=== PATIENT | female | born 1975 | race Caucasian/White ===

== ENCOUNTER → 2019-05-23 | Outpatient (CLI) | payer OTHER ==
--- NOTE | 2019-05-24 11:56 | MM ---
Reason for exam: screening (asymptomatic). Last mammogram was performed 14 years and 8 months ago. History: Patient is nulliparous. Took hormonal contraceptives for 3 years. Physical Findings: A clinical breast exam by your physician is recommended on an annual basis and results should be correlated with mammographic findings. MG Screening Mammo w CAD Bilateral CC and MLO view(s) were taken. No prior studies available for comparison. The breast tissue is heterogeneously dense. This may lower the sensitivity of mammography. Nodularity bilaterally varying size and shape. ASSESSMENT: Incomplete: need additional imaging evaluation, BI-RAD 0 RECOMMENDATION: Ultrasound of both breasts. [facility] will attempt to contact patient to return for ultrasound.
== END | disposition home or self-care (01) ==
LOC: RADMAMWWP 08:06
PROVIDERS: ATTEND Obstetrics & Gynecology
DX: Z12.31 Encounter for screening mammogram for malignant neoplasm of breast (principal)
CPT/HCPCS: 77067

== ENCOUNTER → 2019-06-20 | Outpatient (CLI) | payer OTHER ==
--- NOTE | 2019-06-20 11:57 | USB ---
Reason for exam: additional evaluation requested from abnormal screening. History: Patient is nulliparous. Took hormonal contraceptives for 3 years. Physical Findings: Nurse did not find any significant physical abnormalities on exam. US Breast Workup SUKHWINDER Technologist: Roz Palacios Right complete breast ultrasound includes all four quadrants, the retroareolar region and axilla. Finding demonstrates a 0.6 x 0.6 x 0.4cm cystic lesion at 2 o'clock, a 1.0 x 0.9 x 0.4cm cystic cluster at 8 o'clock, 0.5 x 0.3 x 0.2cm lesion at 9 o'clock, ducts at posterior nipple and a 0.7 x 0.6 x 0.5cm cystic lesion at 11 o'clock. Left complete breast ultrasound includes all four quadrants, the retroareolar region and axilla. Finding demonstrates a 0.6 x 0.5 x 0.3cm cystic lesion at 12 o'clock, a ducts at the posterior nipple, a 1.1 x 1.2 x 0.6cm cystic lesion at 2 o'clock and a 0.9 x 0.7 x 0.6cm cystic cluster at 2 o'clock. Numerous benign cysts. These results were verbally communicated with the patient and result sheet given to the patient on 06/20/19. ASSESSMENT: Benign, BI-RAD 2 RECOMMENDATION: Return to routine screening mammogram schedule for both breasts.
== END | disposition home or self-care (01) ==
LOC: RADUSWWP 09:40
PROVIDERS: ATTEND Obstetrics & Gynecology
DX: R92.8 Other abnormal and inconclusive findings on diagnostic imaging of breast (principal)

== ENCOUNTER → 2020-05-17 | Outpatient (CLI) | payer OTHER ==
--- NOTE | 2020-05-17 17:00 | US ---
EXAMINATION TYPE: Transabdominal DATE OF EXAM: 05/17/2020 4:45 PM COMPARISON: NONE CLINICAL HISTORY: Z36 CONFIRM DATES. EXAM PERFORMED: Transvaginal (TV) and Transabdominal (TA) EXAM MEASUREMENTS: GESTATIONAL AGE / DATING Physician Established: Not yet established Dates by First Scan: No previous this is first scan Dates by Current Scan for: too early to date MATERNAL ANATOMY Uterus: 9.1 x 5.8 x 7.5cm Right Ovary: obscured by overlying bowel gas Left Ovary: wnl Post CDS / Adnexa: wnl Presence of free fluid: no Presence of subchorionic bleed measuring 1.5 x 0.3 x 0.9cm GESTATION / SURVEY CRL: 2mm (too early to register) MSD: 1.3 (5 weeks/4 days) Yolk Sac (normal less than 6mm): 3mm Heart Rate: too early to measure IUP Date of LMP: 03/07/20, spotting 10-2-20 Beta HcG (if available): not available IMPRESSION: Subchorionic hemorrhage is suspected. pole is not identified. Findings may represent an early p regnancy. Consider follow-up.
== END | disposition home or self-care (01) ==
LOC: RADUSWWP 16:06
PROVIDERS: ATTEND Obstetrics & Gynecology
DX: Z36.9 Encounter for antenatal screening, unspecified (principal); O26.899 Other specified pregnancy related conditions, unspecified trimester
CPT/HCPCS: 76801; 76817

== ENCOUNTER → 2020-05-17 | Outpatient (CLI) | payer OTHER | END | disposition home or self-care (01) | LOC: LABWHC1 12:17 | PROVIDERS: ATTEND Obstetrics & Gynecology | DX: Z34.81 Encounter for supervision of other normal pregnancy, first trimester (principal) | CPT/HCPCS: 36415; 84702 ==

== ENCOUNTER → 2020-06-05 | Outpatient (CLI) | payer OTHER ==
[2020-06-05 14:34] LABS: Basophils % (A) 0 %; Eosinophils # (A) 0.1 k/uL (0-0.7); Eosinophils % (A) 1 %; HCT 38.4 % (34.0-46.0); HGB 12.6 gm/dL (11.4-16.0); Lymphocytes # (A) 1.8 k/uL (1.0-4.8); Lymphocytes % (A) 20 %; MCH 31.8 pg (25.0-35.0); MCHC 32.8 g/dL (31.0-37.0); MCV 96.7 fL (80.0-100.0); Mean Platelet Volume 9.3; Monocytes # (A) 0.4 k/uL (0-1.0); Monocytes % (A) 4 %; Neutrophils # (A) 6.6 k/uL (1.3-7.7); Neutrophils % (A) 73 %; Platelet Count 212 k/uL (150-450); RBC 3.97 m/uL (3.80-5.40); RDW 14.7 % (11.5-15.5); WBC 9.1 k/uL (3.8-10.6)
== END | disposition home or self-care (01) ==
LOC: LABPAT 13:05
PROVIDERS: ATTEND Obstetrics & Gynecology
DX: Z01.818 Encounter for other preprocedural examination (principal)
CPT/HCPCS: 36415; 85025

== ENCOUNTER 2020-06-06 05:45 | Day surgery (SDC) | payer OTHER ==
[2020-06-05 13:26] VITALS: BMI 22.8
--- NOTE | 2020-06-05 14:20 | P.HPOB ---
History of Present Illness H&P Date: 06/05/20 Chief Complaint: incomplete 44 year old presents for suction D&C. SHe had an US yesterday showing a nonviable of 7 weeks. Review of Systems All systems: negative Constitutional: Denies chills, Denies fever Eyes: denies blurred vision, denies pain Ears, nose, mouth and throat: Denies headache, Denies sore throat Cardiovascular: Denies chest pain, Denies shortness of breath Respiratory: Denies cough Gastrointestinal: Denies abdominal pain, Denies diarrhea, Denies nausea, Denies vomiting Genitourinary: Denies dysuria, Denies hematuria Musculoskeletal: Denies myalgias Integumentary: Denies pruritus, Denies rash Neurological: Denies numbness, Denies weakness Psychiatric: Denies anxiety, Denies depression Endocrine: Denies fatigue, Denies weight change Past Medical History Past Medical History: No Reported History Additional Past Medical History / Comment(s): MISSED AB Hx Obstetric history: She had 3 miscarriages. Her fourth she had a normal vaginal delivery 8#13oz. This is her fifth and she has had care with me since 11 weeks. Quad negative, normal anatomy US and she declined amnio. A+, abs neg, Rub Imm, RPR NR, Hep B neg, HIV NR. normal 1hr GTT. GBS neg. History of Any Multi-Drug Resistant Organisms: None Reported Additional Past Surgical History / Comment(s): Lasik eye surgery. D&Cs Past Anesthesia/Blood Transfusion Reactions: Motion Sickness, Postoperative Nausea & Vomiting (PONV) Smoking Status: Former smoker - Past Family History Father Family Medical History: Coronary Artery Disease (CAD) Mother Family Medical History: Hypertension Medications and Allergies Home Medications Medication Instructions Recorded Confirmed Type No Known Home Medications 06/05/20 06/05/20 History Allergies Allergy/AdvReac Type Severity Reaction Status Date / Time No Known Allergies Allergy Verified 06/05/20 13:21 Exam Osteopathic Statement: *. No significant issues noted on an osteopathic structural exam other than those noted in the History and Physical/Consult. Intake and Output 06/04/20 06/05/20 06/05/20 22:59 06:59 14:59 Other: Weight 62.369 kg Heart: RRR Lungs: CTAB Abdomen:soft, nontender Extremeties: neg eduardo's Assessment and Plan (1) Incomplete Status: Acute Code(s): O03.4 - INCOMPLETE SPONTANEOUS WITHOUT COMPLICATION SNOMED Code(s): 211306262 Plan: 1. suction D&C
[~2020-06-06 05:45] MED LIST: DEXAMETHASONE SOD PHOSPHATE 4 MG/ML 1 ML VIAL IV ONE; HYDROmorphone 0.5 MG/0.5 ML SYRINGE IVP PRN; LACTATED RINGERS 1,000 ML IV SCH; MIDAZOLAM 2 MG/2 ML VIAL IV PRN; ONDANSETRON 4 MG/2 ML VIAL IVP ONE; Pre Op ABX Message 1 EACH MISC MISCELLANE ONE; SCOPOLAMINE 1.5MG/72HR PATCH TRANSDERM ONE
[2020-06-06] MEDS ORDERED: LIDOCAINE 1% (10MG/ML) FOR IV START INTRADERMA ONE (06:25)
[2020-06-06] MEDS ORDERED: PROPOFOL 10 MG/ML 20 ML VIAL IV ONE (06:51)
[2020-06-06] MEDS ORDERED: MIDAZOLAM 2 MG/2 ML VIAL ONE (06:51)
[2020-06-06] MEDS ORDERED: fentaNYL (PF) 50 MCG/ML 2 ML AMP ONE (06:51)
[2020-06-06] MEDS ORDERED: KETOROLAC 15 MG/ML 1 ML VIAL ONE (06:51)
[2020-06-06] MEDS ORDERED: LIDOCAINE 1% INJ 10MG/ML (20 ML MDV) ONE (06:51)
--- NOTE | 2020-06-06 07:32 | P.OP ---
Date of Procedure: 06/06/20 Preoperative Diagnosis: 1. Incomplete Postoperative Diagnosis: 1. Incomplete Procedure(s) Performed: Suction D&C Anesthesia: MAC (LMA) Surgeon: Maria Alejandra Menjivar Estimated Blood Loss (ml): 500 IV fluids (ml): 600 Urine output (ml): 10 Pathology: other (Products of conception) Condition: stable Disposition: PACU Operative Findings: Moderate amount of tissue extracted from the uterus Description of Procedure: Patient is taken the operating room where general anesthesia was obtained without difficulty. She is prepped draped in normal surface in dorsal lithotomy position, legs placed in candy cane stirrups. G and all urine. Weighted speculum placed in the vagina and the anterior lip the cervix was grasped with single-tooth tenaculum. The cervix was dilated to #10 Hegar dilator. The #10 curved suction curet was introduced into the uterus, and passed several times to obtain all tissue and blood. Sharp curet was used to ensure all tissue had been removed. The suction curet was passed a few more times to ensure blood and tissue were removed. Hemostasis was assured. Patient procedure well, sponge and instrument counts correct 2. She is to recovery in stable condition.
[2020-06-06 07:45] VITALS: RESP 16; TEMP 96.8
[2020-06-06 08:58] VITALS: BP 103/55; PULSE 69
== END 2020-06-06 09:28 | disposition home or self-care (01) ==
LOC: OR 05:45
PROVIDERS: ATTEND Obstetrics & Gynecology
DX: O03.4 Incomplete spontaneous abortion without complication (principal); Z87.59 Personal history of other complications of pregnancy, childbirth and the puerperium; Z98.890 Other specified postprocedural states; Z87.898 Personal history of other specified conditions; Z91.89 Other specified personal risk factors, not elsewhere classified; Z87.891 Personal history of nicotine dependence; Z82.49 Family history of ischemic heart disease and other diseases of the circulatory system
CPT/HCPCS: 88305; 59812; J2250; J1100; J2405; J2001; J3010; J1885; J2704; 86850; 86900; 86901

== ENCOUNTER → 2020-09-06 | Outpatient (CLI) | payer BC, OTHER ==
--- NOTE | 2020-09-10 10:13 | MM ---
Reason for exam: screening (asymptomatic). Last mammogram was performed 1 year and 4 months ago. History: Patient is nulliparous. Took hormonal contraceptives for 3 years. Physical Findings: A clinical breast exam by your physician is recommended on an annual basis and results should be correlated with mammographic findings. MG Screening Mammo w CAD Bilateral CC and MLO view(s) were taken. Prior study comparison: May 23, 2019, bilateral MG screening mammo w CAD. The breast tissue is heterogeneously dense. This may lower the sensitivity of mammography. Upper outer quadrant and upper inner quadrant nodularity has increased, probably underlying cysts for which ultrasound is recommended. New grouped calcifications left upper outer quadrant at middle depth. ASSESSMENT: Incomplete: need additional imaging evaluation, BI-RAD 0 RECOMMENDATION: Special view mammogram of the left breast. (magnification, upper outer quadrant calcifications) Ultrasound of the left breast. (superior half) [facility] will attempt to contact patient to return for supplemental views and ultrasound.
== END ==
LOC: RADMAMWWP 13:31
PROVIDERS: ATTEND Internal Medicine
DX: Z12.31 Encounter for screening mammogram for malignant neoplasm of breast (principal)
CPT/HCPCS: 77067

== ENCOUNTER → 2020-09-24 | Outpatient (CLI) | payer BC, OTHER ==
--- NOTE | 2020-09-25 08:36 | MM ---
Reason for exam: additional evaluation requested from abnormal screening. Last mammogram was performed 1 month ago. History: Patient had first child at age 38. Took hormonal contraceptives for 3 years. Physical Findings: Nurse Summary: 1cm and 3cm nodule in the left breast at 12 and 2 o'clock (nurse mj). MG 3D Work Up W/Cad LT CC with magnification, LM with magnification, and LM view(s) were taken of the left breast. Prior study comparison: May 23, 2019, bilateral MG screening mammo w CAD. Finding: There are indeterminate calcifications in the upper outer quadrant of the left breast, two sites, 6cm from the nipple and 8cm from the nipple. These results were verbally communicated with the patient and result sheet given to the patient on 09/24/20. ASSESSMENT: Suspicious, BI-RAD 4 RECOMMENDATION: Stereotactic core biopsy of the left breast. (x 2) Called Dr. Castro's office with mammographic findings and has scheduled an appointment for the patient for 10/25/20 at 2:[address] Mckeon. Stereotactic core biopsy scheduled for 10/05/20 at 8:00. Ultrasound core biopsy scheduled for 11/08/20 at 10:30. PRELIMINARY REPORT CALLED AND FAXED TO DR. MCKEON ON 09/25/20.
--- NOTE | 2020-09-25 08:39 | USB ---
Reason for exam: additional evaluation requested from abnormal screening. History: Patient had first child at age 38. Took hormonal contraceptives for 3 years. US Breast Workup Limited LT Left limited breast ultrasound including focal area of concern, retroareolar and axilla demonstrates a 5 x 5 x 6mm lobular, mixed lesion at 10 o'clock, a 7 x 6 x 11mm lobular, cystic lesion at 11 o'clock BB, a 17 x 8 x 15mm oval, cystic lesion at 2 o'clock BB and duct ectasia at the posterior nipple. These results were verbally communicated with the patient and result sheet given to the patient on 09/24/20. ASSESSMENT: Suspicious, BI-RAD 4 RECOMMENDATION: Ultrasound core biopsy of the left breast. (10 o'clock) Called Dr. Castro's office with mammographic findings and has scheduled an appointment for the patient for 10/25/20 at 2:[address] Mckeon. Stereotactic core biopsy scheduled for 10/05/20 at 8:00. Ultrasound core biopsy scheduled for 11/08/20 at 10:30. PRELIMINARY REPORT CALLED AND FAXED TO DR. MCKEON ON 09/25/20.
== END | disposition home or self-care (01) ==
LOC: RADMAMWWP 09:39
PROVIDERS: ATTEND Internal Medicine
DX: R92.1 Mammographic calcification found on diagnostic imaging of breast (principal); N60.02 Solitary cyst of left breast; N60.42 Mammary duct ectasia of left breast
CPT/HCPCS: 77061; 77065

== ENCOUNTER → 2020-10-25 | Outpatient (CLI) | payer BC, OTHER ==
[2020-10-25 14:10] VITALS: BP 112/79; PULSE 68; RESP 18; TEMP 98.5
--- NOTE | 2020-10-25 14:27 | P.GSHP ---
History of Present Illness H&P Date: 10/25/20 Chief Complaint: abnormal left breast mammogram and ultrasound Juana is a 45 year old white female seen in consultation for DR. Castro regarding a radiographic abnormality in the left breast. She had a bilateral mammogram done on 09-06-20 which showed an area of concern in the left breast. Nothing of concern was seen in the right breast. A diagnostic left breast mammogram and ultrasound were done on 09-24-20. It was recommended she have stero biopsy of two sites in the left breast and ultrasound core biopsy of the left breast at 10:00. She did not feel anything of concern in the breast prior to this evaluation. She does not complain of any nipple discharge or skin changes. She has not had any breast surgery, trauma, or infection in her breast. Caffeine: cup/day nicotine: 6 cigarettes/day, since chocolate:occasional Family history: maternal grandfather: lung cancer smoker Hormonal History: menarche: 16 Miscarriages 4; breast fed: yes, first live at 37; patient had a recent miscarriage in June was about 7 weeks had a D&C periods periods regular BCP: 14 years, no other hormones Surgical history: 1. D&C 2. Lasix eye surgery Medical history: antifungal for toe nail chantix iron Social History: smoke: 6 cigarettes/day alcohol: none, used to be a heavy drinker drugs: Marijuana weekly - Constitutional Constitutional: Denies chills, Denies fever - EENT Eyes: denies blurred vision, denies pain Ears: right: tinnitus, deny: decreased hearing Ears, nose, mouth and throat: Denies headache, Denies sore throat - Breasts Breasts: bilateral: as per HPI - Cardiovascular Cardiovascular: Reports chest pain, Denies shortness of breath - Respiratory Respiratory: Denies cough, Denies 7 - Gastrointestinal Gastrointestinal: Reports abdominal pain, Reports diarrhea, Denies nausea, Denies vomiting - Genitourinary (Female) Genitourinary: Denies dysuria, Denies hematuria - Menstruation Menstruation: Reports period normal - Musculoskeletal Musculoskeletal: Denies myalgias - Integumentary Integumentary: Denies pruritus, Denies rash - Neurological Neurological: Denies numbness, Denies weakness - Psychiatric Psychiatric: Denies anxiety, Denies depression - Endocrine Endocrine: Denies fatigue, Denies weight change - Hematologic/Lymphatic Comment: none - Allergic/Immunologic Allergic/Immunologic: Reports as per HPI Past Medical History Past Medical History: No Reported History Additional Past Medical History / Comment(s): Obstetric history: She had 3 miscarriages. Her fourth she had a normal vaginal delivery 8#13oz. This is her fifth and she has had care with [facility] since 11 weeks. Quad negative, normal anatomy US and she declined amnio. A+, abs neg, Rub Imm, RPR NR, Hep B neg, HIV NR. normal 1hr GTT. GBS neg. History of Any Multi-Drug Resistant Organisms: None Reported Additional Past Surgical History / Comment(s): Lasik eye surgery. D&C Past Anesthesia/Blood Transfusion Reactions: No Reported Reaction Past Psychological History: No Psychological Hx Reported Past Alcohol Use History: None Reported Past Drug Use History: None Reported - Past Family History Father Family Medical History: Coronary Artery Disease (CAD) Mother Family Medical History: Hypertension Medications and Allergies Home Medications Medication Instructions Recorded Confirmed Type Ibuprofen [Motrin] 600 mg PO Q6HR PRN #30 tab 06/06/20 Rx Allergies Allergy/AdvReac Type Severity Reaction Status Date / Time No Known Allergies Allergy Verified 06/05/20 13:21 Surgical - Exam BMI 23.8 - General well developed, well nourished, no distress - Eyes normal ocular movement - ENT normal pinna, normal nares - Neck no masses, trachea midline - Respiratory normal expansion, normal respiratory effort - Cardiovascular Rhythm: regular Heart Sounds: normal: S1, S2 - Abdomen Abdomen: soft - Integumentary no rash, no abnormal pigmentation - Neurologic no disoriented, no combative - Musculoskeletal normal gait, normal posture - Psychiatric oriented to time, oriented to person, oriented to place, speech is normal, mem ory intact breast exam: BRA: 36C inspection: bilateral grade 1/2 ptosis palpation: right breast: Multi-positional exam fibrocystic changes, no dominant masses or nodules of concern Right axilla: No adenopathy of concern Left breast: Fullness in the upper outer quadrant area but no discrete lumps or masses of concern Left axilla: No adenopathy of concern Results Mammogram and ultrasound reviewed with Dr. Bucio Assessment and Plan Assessment: Impression: 1. Radiographic abnormality left breast/microcalcifications to be sampled 2 areas of concern in the left breast upper outer quadrant region, ultrasound revealing an area of concern in the left breast at 10:00 for biopsy as well 2. Fullness on physical examination increased density upper quadrant left breast 3. Patient with recent miscarriage approximately 4 months ago. Suspect that the changes in the breast may be related to hormonal changes related to the miscarriage 4. Family history only lung cancer and a grandfather who is a heavy smoker 5. Nicotine dependence Plan: 1. Stereotactic core biopsy 2 areas of microcalcification left breast/ultrasound-guided core biopsy area of concern in the left breast 2. Patient smokes cigarettes and is going to attempt to decrease that CC: Dr. Castro Encounter 45 minutes time spent in reviewing records, physical examination, and counselling. Risks and benefits of the procedures were discussed with the patient. She was concerned regarding the clips which would be left behind we showed her the actual clip under magnification and discussed that this would be titanium. Risks include but are not limited to bleeding, infection, reaction to the anesthetic. There is a possibility we may not be able to reproduce the area of concern in which case we may recommend repeating the mammogram in 6 months. She understands and wishes to proceed.
== END ==
LOC: WWCWWP 13:48
PROVIDERS: ATTEND Surgery
DX: R92.2 Inconclusive mammogram (principal); F17.210 Nicotine dependence, cigarettes, uncomplicated; Z80.1 Family history of malignant neoplasm of trachea, bronchus and lung

== ENCOUNTER → 2020-11-01 | Day surgery (SDC) | payer BC, OTHER ==
[2020-11-01 07:15] VITALS: RESP 16
--- NOTE | 2020-11-01 09:30 | P.PCN ---
Date of Procedure: 11/01/20 Preoperative Diagnosis: Mammographic abnormality 2 sites left breast Postoperative Diagnosis: Same Procedure(s) Performed: Stereotactic core biopsy 2 sites left breast Anesthesia: local Surgeon: Lisa Mckeon Pathology: other (Breast tissue) Condition: stable Disposition: same day Indications for Procedure: Mammographic abnormality microcalcifications of concern 2 sites left breast Operative Findings: Radiographic specimens reveals microcalcifications of concern in each biopsy specimen Description of Procedure: The patient is a 45-year-old white female with radiographic abnormality of concern in the left breast in the anterior and posterior site. She was recommended to undergo stereotactic core biopsy. Alternatives such as watchful waiting or resection in the operating room were considered but not recommended. The patient wished to proceed with a stereotactic core biopsy. She was brought to the stereotactic core biopsy room and positioned on the lower rad table in a prone position. A motor boss film was obtained and a CC from above approach was utilized. Both lesions were noted in the same film. The posterior lesion was approached initially. The area was targeted. The breast was prepped using Betadine. A 9-gauge vacuum-assisted core rotating biopsy needle was driven to the correct coordinates. 16 mL of 1% lidocaine were used to anesthetize this area of concern. The needle was fired. A posterior film was noted to have the needle in the correct location. Eight core biopsy specimens were obtained. Radiograph of the specimen revealed the area of concern had been sampled. A secure marked top at clip was placed. This was noted to be in the correct location. Following this the anterior lesion was targeted. Again the breast was prepped using Betadine. 16 mL of 1% lidocaine was used to anesthetize the area of concern. A 9-gauge vacuum-assisted core rotating biopsy needle was driven to the correct coordinates. Pre-fire film was obtained. The needle was noted to be in the correct location. The needle was fired and a posterior film again showed the needle to be in the correct location. 4 specimens were obtained. Radiograph the specimens revealed the area of concern had been sampled. A trial eben bowtie clip was placed. The clip was noted to be in the correct location. The specimens were sent to pathology. The patient tolerated the procedure in stable condition. The patient is going to have an ultrasound core biopsy of the breast next week.. She will follow with Dr. Gonsales for results.
[2020-11-01 10:05] VITALS: BP 132/80; PULSE 78; TEMP 98.3
--- NOTE | 2020-11-01 10:59 | MM ---
Stereotactic core biopsy left breast 2 sites HISTORY: Microcalcifications. The calcifications in question within the left breast were targeted by the undersigned. The examinat ion was performed by the surgeon. Specimen radiograph demonstrates numerous calcifications within th e specimen submitted. Post procedural mammogram demonstrates appropriate deployment of radiopaque cl ip marker. The patient tolerated the procedure well and left the department in stable condition. Pa thology results are pending. IMPRESSION: Successful stereotactic core biopsy left breast 2 sites with pathology results pending.
== END ==
LOC: RADMAMWWP 07:02
PROVIDERS: ATTEND Surgery
DX: N60.12 Diffuse cystic mastopathy of left breast (principal); N60.02 Solitary cyst of left breast; N60.22 Fibroadenosis of left breast
CPT/HCPCS: 88305; 19081; A4648; J2001

== ENCOUNTER → 2020-11-08 | Day surgery (SDC) | payer BC, OTHER ==
[2020-11-08 10:29] VITALS: RESP 16; TEMP 98.5
[2020-11-08 11:50] VITALS: BP 127/70; PULSE 74
--- NOTE | 2020-11-08 15:15 | USB ---
EXAMINATION TYPE: US biopsy breast VAD LT DATE OF EXAM: 11/08/2020 CLINICAL HISTORY: R92.8 Abnormal Mammogram. TECHNIQUE: Ultrasound guided vaccuum assisted core biopsy of left breast. COMPARISON: 09/24/2020 FINDINGS: The ultrasound guided core biopsy procedure was explained to the patient. The risks, benefits, alternatives were discussed. An informed consent was then obtained. Timeout was performed. The patient was placed in supine positioning for imaging and for the procedure. The overlying skin was prepped with betadine and sterilely draped in usual sterile fashion. Lidocaine 1% was used as anesthetic into the skin and deeper breast tissue up to area of concern in the breast. A small skin lucy was made with surgical scalpel. Under ultrasound guidance, a 12-gauge vacuum assisted biopsy device was used to obtain 4 core samples. A biopsy clip was left in lesion. Ribbon clip was placed. Good hemostasis was obtained with direct pressure. Discharge instructions were discussed with the patient. The patient will follow up with the referring physician for results. Postprocedure mammogram: The patient was transferred to mammography for physician ordered post procedure mammogram for clip placement verification. The clip is in the expected region of the biopsy. The patient tolerated the procedure well without any immediate complication. The patient was discharged to home in stable condition. IMPRESSION: 1. Successful ultrasound guided biopsy left breast. Recommendations: 1. Recommendations are pending pathology results. Pathology Results: Benign LEFT BREAST, 10:00 POSITION, CORE BIOPSY: Fibroadenomatoid change with focal mild usual ductal hyperplasia and focal microcalcification. Focal columnar cell change. Recommendation Follow up ultrasound of the left breast in 6 months. LAURA
--- NOTE | 2020-11-08 15:16 | MM ---
EXAMINATION TYPE: US biopsy breast VAD LT DATE OF EXAM: 11/08/2020 CLINICAL HISTORY: R92.8 Abnormal Mammogram. TECHNIQUE: Ultrasound guided vaccuum assisted core biopsy of left breast. COMPARISON: 09/24/2020 FINDINGS: The ultrasound guided core biopsy procedure was explained to the patient. The risks, benef its, alternatives were discussed. An informed consent was then obtained. Timeout was performed. The patient was placed in supine positioning for imaging and for the procedure. The overlying skin w as prepped with betadine and sterilely draped in usual sterile fashion. Lidocaine 1% was used as ane sthetic into the skin and deeper breast tissue up to area of concern in the breast. A small skin bernardino k was made with surgical scalpel. Under ultrasound guidance, a 12-gauge vacuum assisted biopsy device was used to obtain 4 core samples . A biopsy clip was left in lesion. Ribbon clip was placed. Good hemostasis was obtained with direct pressure. Discharge instructions were discussed with the nhung luke. The patient will follow up with the referring physician for results. Postprocedure mammogram: The patient was transferred to mammography for physician ordered post proced ure mammogram for clip placement verification. The clip is in the expected region of the biopsy. The patient tolerated the procedure well without any immediate complication. The patient was dischar ged to home in stable condition. IMPRESSION: 1. Successful ultrasound guided biopsy left breast. Recommendations: 1. Recommendations are pending pathology results.
== END ==
LOC: RADUSWWP 10:05
PROVIDERS: ATTEND Surgery
DX: D24.2 Benign neoplasm of left breast (principal); N62 Hypertrophy of breast; R92.8 Other abnormal and inconclusive findings on diagnostic imaging of breast
CPT/HCPCS: 88305; 77065; 19083; A4648; J2001

== ENCOUNTER → 2020-11-14 | Outpatient (CLI) | payer BC, OTHER ==
[2020-11-14 14:01] VITALS: BP 129/81; PULSE 73; RESP 18; TEMP 98.3
--- NOTE | 2020-11-14 14:53 | P.PN ---
Subjective Progress Note Date: 11/14/20 Principal diagnosis: results of stero and ultrasound biopsy Patient is a 45-year-old white female status post core and stereotactic biopsy of the left breast the stereotactic biopsy was on 4320. 2 areas were biopsied the posterior lesion was fibrocystic change including cyst with intraluminal calcifications, the anterior lesion revealed atypical lobular hyperplasia. Ultrasound core biopsy was also performed this was on 5720 which was benign fibroadenomatoid change with focal ductal hyperplasia. The patient states that during the biopsy she became very anxious when she was held down on the stereo table. She states that she experienced pain but was afraid to say anything. She is at this time doing well. She tolerated the ultrasound core biopsy without difficulty. Following the procedure the next day she states she had increased anxiety related to the procedure. Objective - Vital Signs Vital signs: Vital Signs Temp 98.3 F 11/14/20 13:55 Pulse 73 11/14/20 13:55 Resp 18 11/14/20 13:55 BP 129/81 11/14/20 13:55 Pulse Ox 98 11/14/20 13:55 Intake & Output 11/13/20 11/14/20 11/14/20 18:59 06:59 18:59 Weight 63.503 kg - Constitutional General appearance: Present: average body habitus - Integumentary Integumentary Comment(s): All biopsy sites clean and dry no evidence of hematoma or infection Assessment and Plan Assessment: Impression: 1. 3 core biopsies of the left breast, anterior stereotactic core biopsy revealing atypical lobular hyperplasia Plan: 1. Needle localization excisional biopsy lesion left breast anterior stereotactic lesion, this is at the [employer] [place] [place] tie clip, possible mastopexy incision, possible onco-plastic tissue transfer Risks and benefits of the procedure were discussed with the patient. Risks include but are not limited to bleeding, infection, reaction to the anesthetic. Additionally she understands that we could attempt to remove the area but not get this spot, or if this were cancer she could've positive margins. She understands and wishes to proceed. Additionally she understands that titanium clips will be left to eben the area that we resect. CC: Dr. Castro
== END ==
LOC: WWCWWP 13:30
PROVIDERS: ATTEND Surgery
DX: N60.92 Unspecified benign mammary dysplasia of left breast (principal)

== ENCOUNTER 2020-11-26 08:45 | Day surgery (SDC) | payer BC, OTHER ==
[~2020-11-26 08:45] MED LIST changes: +HEPARIN SODIUM,PORCINE/PF 5,000 UNIT/0.5 ML SYRINGE SQ PRN; +LIDOCAINE 1% (10MG/ML) FOR IV START INTRADERMA PRN; -SCOPOLAMINE 1.5MG/72HR PATCH TRANSDERM ONE
[2020-11-26] MEDS ORDERED: SCOPOLAMINE 1.5MG/72HR PATCH TRANSDERM ONE (09:47)
[2020-11-26] MEDS ORDERED: LIDOCAINE 1% INJ 10MG/ML (20 ML MDV) SQ ONE ×3 (10:12→12:08)
[2020-11-26] MEDS ORDERED: LIDOCAINE 1% INJ 10MG/ML (20 ML MDV) ONE (11:05)
[2020-11-26] MEDS ORDERED: HYDROmorphone (PF) 1 MG/ML ONE (11:05)
[2020-11-26] MEDS ORDERED: MIDAZOLAM 2 MG/2 ML VIAL ONE (11:05)
[2020-11-26] MEDS ORDERED: PROPOFOL 10 MG/ML 20 ML VIAL IV ONE (11:05)
[2020-11-26] MEDS ORDERED: fentaNYL (PF) 50 MCG/ML 2 ML AMP ONE (11:05)
--- NOTE | 2020-11-26 11:14 | MM ---
MAMMOGRAPHIC GUIDED NEEDLE LOCALIZATION Left BREAST: The procedure and risks were explained to the patient and written informed consent obtained. Using local anesthetic, sterile technique and mammographic guidance, a 5 cm Ghiatas localization need le was percutaneously placed in the area of biopsy clip . Orthogonal mammographic views confirmed sa tisfactory needle placement. The hookwire was deployed. The patient tolerated the procedure well. The re were no complications. IMPRESSION: Uneventful needle localization of Left breast without complication.
--- NOTE | 2020-11-26 12:17 | P.OP ---
Date of Procedure: 11/26/20 Preoperative Diagnosis: Atypical lobular hyperplasia on core biopsy of left breast/anterior lesion Postoperative Diagnosis: Same Procedure(s) Performed: Needle localization excisional biopsy, onco-plastic tissue transfer 35 cm Anesthesia: LAURA, local Surgeon: Lisa Mckeon Estimated Blood Loss (ml): 5 IV fluids (ml): 400 Pathology: other (Breast tissue) Condition: stable Disposition: same day Indications for Procedure: core Biopsy left breast atypical lobular hyperplasia Operative Findings: Dense breast tissue Description of Procedure: Following needle localization of the area of concern in the left breast the patient was brought to the operating room. Following induction of general anesthesia the left breast was prepped and draped in a sterile fashion. An incision was made and carried down to the shaft of the needle. Surrounding tissue was excised. The size of the tissue removed was 4 cm x 3 cm. Following this the specimen was painted for orientation. An x-ray was performed of the specimen which revealed the area of concern had been removed. The wound was evaluated for hemostasis, which was obtained. Titanium clips were placed. Superiorly tissue 5 x 3 cm was mobilized for a total of 15 cm, inferiorly tissue 4 x 2 cm 12 cm was mobilized. A total of 35 cm was mobilized. The deep tissues were brought together to close the defect using 3-0 Vicryl suture. This was followed by closure of the subcutaneous tissue with 3-0 Vicryl suture. The skin was closed using 4-0 Monocryl. Steri-Strips were applied. The patient tolerated the procedure in stable condition. All instrument and sponge counts were correct at the end of the case.
--- NOTE | 2020-11-26 12:20 | P.DS ---
Providers Attending physician: Lisa Mckeon Primary care physician: Harriett Castro Plan - Discharge Summary Discharge Rx Participant: No New Discharge Prescriptions: No Action Cyclobenzaprine [Flexeril] 5 mg PO HS Acetaminophen Tab [Tylenol Tab] 500 mg PO Q6H Terbinafine [LamISIL] 250 mg PO DAILY Ibuprofen [Motrin] 400 mg PO Q6HR PRN PRN Reason: Pain Varenicline [Chantix Continuing Pack] 1 mg PO DAILY Discharge Medication List Acetaminophen Tab [Tylenol Tab] 500 mg PO Q6H 11/14/20 [History] Cyclobenzaprine [Flexeril] 5 mg PO HS 11/14/20 [History] Ibuprofen [Motrin] 400 mg PO Q6HR PRN 11/14/20 [History] Terbinafine [LamISIL] 250 mg PO DAILY 11/22/20 [History] Varenicline [Chantix Continuing Pack] 1 mg PO DAILY 11/22/20 [History] Follow up Appointment(s)/Referral(s): Lisa Mckeon MD [STAFF PHYSICIAN] - 1 Week Activity/Diet/Wound Care/Special Instructions: do not drive today may shower after 48 hours wear bra at all times Discharge Disposition: HOME SELF-CARE
[2020-11-26 12:31] VITALS: TEMP 97.6
[2020-11-26 13:47] VITALS: BP 118/76; PULSE 55; RESP 18
--- NOTE | 2020-11-27 17:13 | MM ---
FINDINGS: Left breast specimen radiograph demonstrates the biopsy marker clip to be present eccentrically withi n the specimen <immediately adjacent> to the localization needle. IMPRESSION: Localization needle and biopsy marker clip present within the specimen radiograph with the needle sebastian earing intact.
== END 2020-11-26 14:14 | disposition home or self-care (01) ==
LOC: OR 08:45
PROVIDERS: ATTEND Surgery
DX: N62 Hypertrophy of breast (principal); F17.210 Nicotine dependence, cigarettes, uncomplicated; Z79.899 Other long term (current) drug therapy
CPT/HCPCS: 81025; 76098; 19281; 19125; J2250; J1100; J2405; J2001; J3010; J1170; J2704; J1644; 88307

== ENCOUNTER → 2020-12-05 | Outpatient (CLI) | payer BC, OTHER ==
[2020-12-05 14:52] VITALS: BP 106/70; PULSE 69; RESP 16; TEMP 98.3
--- NOTE | 2020-12-05 15:32 | P.PN ---
Subjective Progress Note Date: 12/05/20 Principal diagnosis: Extensive atypical lobular hyperplasia open biopsy left breast Juana is a 45-year-old white female status post needle local excisional biopsy of the left breast and [id number]. She was noted to have extensive atypical lobular hyperplasia, and focal flat epithelial atypia. She tolerated the procedure well at approximately 4 days postprocedure developed a rash over her upper torso. She is not complaining of any fever or chills. Mandy risk evaluation and analysis reveals a 5 year risk at 4.6%/ vs average 43 year old of 0.8% lifetime risk: 33.3% vs 12.1 % The patient was given the option of seeing a medical oncologist and potential chemoprevention however at this time she just wishes close surveillance. We have additionally talked about surgical intervention and I have not recommended it and again she will be followed closely. Objective - Vital Signs Vital signs: Vital Signs Temp 98.3 F 12/05/20 14:47 Pulse 69 12/05/20 14:47 Resp 16 12/05/20 14:47 BP 106/70 12/05/20 14:47 Pulse Ox 100 12/05/20 14:47 Intake & Output 12/04/20 12/05/20 12/05/20 18:59 06:59 18:59 Weight 62 kg - Constitutional General appearance: Present: average body habitus - EENT Eyes: Present: EOMI ENT: Present: hearing grossly normal - Neck Neck: Present: normal ROM - Respiratory Respiratory: bilateral: CTA - Integumentary Integumentary Comment(s): A macular papular rash under left breast on the torso anteriorly Area of incision is clean and dry no evidence of any infection or hematoma Assessment and Plan Assessment: Impression: 1. Patient status post left breast needle local excisional biopsy/extensive atypical lobular hyperplasia 2. We have discussed chemoprevention and surgical prophylaxis and at this time the patient is not interested in 1 to be followed closely 3. Incision is clean and dry and well-healed 4. Patient with maculopapular rash on the anterior torso under the left breast this is not in continuity with the area of the incision Plan: 1. Patient will be use Benadryl and topical steroids for the rash 2. Patient is going to have repeat left breast mammogram in 6 months with a physician exam at that time 3. At this time she has declined appointment with medical oncology for possible chemoprevention and will continue to follow here with for close surveillance Cc: Dr. Menjivar, Dr. Castro
== END ==
LOC: WWCWWP 14:35
PROVIDERS: ATTEND Surgery
DX: N60.92 Unspecified benign mammary dysplasia of left breast (principal); R21 Rash and other nonspecific skin eruption

== ENCOUNTER → 2021-06-03 | Outpatient (CLI) | payer BC, OTHER ==
--- NOTE | 2021-06-03 11:39 | MM ---
Reason for exam: follow-up at short interval from prior study. Last mammogram was performed 7 months ago. History: Patient has history of high-risk lesion on a previous biopsy at age 45 and had first child at age 38. High risk MG pre op needle loc LT of the left breast, November 26, 2020. Benign US biopsy breast VAD LT of the left breast, November 08, 2020. High risk MG stereo VAD BX addl LT of the left breast, November 01, 2020. High risk MG stereo VAD BX LT of the left breast, November 01, 2020. Took hormonal contraceptives for 3 years. Physical Findings: Nurse did not find any significant physical abnormalities on exam. MG Diagnostic Mammo LT w CAD CC, MLO, and LM view(s) were taken of the left breast. Prior study comparison: November 08, 2020, left breast MG diagnostic mammo LT wo CAD. September 24, 2020, left breast MG 3d work up w/cad LT. The breast tissue is heterogeneously dense. This may lower the sensitivity of mammography. Previous mammotome biopsy in the left breast. Focal asymmetry left round posterior upper outer quadrant, stable. Post surgical changes left upper outer quadrant. No significant new findings when compared with previous films. These results were verbally communicated with the patient and result sheet given to the patient on 06/03/21. ASSESSMENT: Benign, BI-RAD 2 RECOMMENDATION: Follow-up diagnostic mammogram of both breasts in 6 months.
== END | disposition home or self-care (01) ==
LOC: RADMAMWWP 04-28 11:01
PROVIDERS: ATTEND Surgery
DX: R92.8 Other abnormal and inconclusive findings on diagnostic imaging of breast (principal)
CPT/HCPCS: 77065

== ENCOUNTER → 2021-06-12 | Outpatient (CLI) | payer BC, OTHER ==
[2021-06-12 09:16] VITALS: BP 119/81; PULSE 66; RESP 16; TEMP 98.4
--- NOTE | 2021-06-12 09:51 | P.PN ---
Subjective Progress Note Date: 06/12/21 Principal diagnosis: Fibrocystic breast changes/atypical hyperplasia left breast Juana is a 45 year old white female seen initially regarding a radiographic abnormality in the left breast. She had a bilateral mammogram done on 09-06-20 which showed an area of concern in the left breast. Nothing of concern was seen in the right breast. A diagnostic left breast mammogram and ultrasound were done on 09-24-20. It was recommended she have stero biopsy of two sites in the left breast and ultrasound core biopsy of the left breast at 10:00. She did not feel anything of concern in the breast prior to this evaluation. She does not complain of any nipple discharge or skin changes. She has not had any breast surgery, trauma, or infection in her breast. ultrasound core biopsu on 11-08-20 was benign. Stero biopsy of two sites of the left breast on revealed in the posterior site fibrocystic changes, and in the anterior site atypical lobular hyperplasia. She subsequently underwent needle localization and excisional biopsy of the area of concern in the left breast. This was performed on . This revealed extensive atypical lobular hyperplasia, focal flat epithelial atypia. The patient most recently had a mammogram of the left breast on [id number] this was benign BIRADS 2. She does not complain of any new lumps masses or nodules of concern in either breast. She is not complaining of any nipple discharge or skin changes. We discussed chemoprevention secondary to her history of atypical lobular hyperplasia however at this time she has declined. Caffeine: none nicotine: 6 cigarettes/day, since 18; has decreased to none on some days chocolate:occasional Family history: maternal grandfather: lung cancer smoker Hormonal History: menarche: 16 Miscarriages 4; breast fed: yes, first live at 37; patient had a recent miscarriage in June was about 7 weeks had a D&C periods periods regular BCP: 14 years, no other hormones Surgical history: 1. D&C 2. Lasix eye surgery 3. left breast biopsy Medical history: antifungal for toe nail chantix iron Social History: smoke: 6 cigarettes/day sone days none alcohol: none, used to be a heavy drinker drugs: Marijuana was weekly, now decreased - Constitutional Constitutional: Denies chills, Denies fever - EENT Eyes: denies blurred vision, denies pain Ears: right: tinnitus, deny: decreased hearing Ears, nose, mouth and throat: Denies headache, Denies sore throat - Breasts Breasts: bilateral: as per HPI - Cardiovascular Cardiovascular: Reports chest pain, Denies shortness of breath - Respiratory Respiratory: Denies cough - Gastrointestinal Gastrointestinal: Reports abdominal pain, Reports diarrhea, Denies nausea, Denies vomiting - Genitourinary (Female) Genitourinary: Denies dysuria, Denies hematuria - Menstruation Menstruation: Reports period normal - Musculoskeletal Musculoskeletal: Denies myalgias - Integumentary Integumentary: Denies pruritus, Denies rash - Neurological Neurological: Denies numbness, Denies weakness - Psychiatric Psychiatric: Denies anxiety, Denies depression - Endocrine Endocrine: Denies fatigue, Denies weight change - Hematologic/Lymphatic Comment: none - Allergic/Immunologic Allergic/Immunologic: Reports as per HPI Objective - Vital Signs Vital signs: Vital Signs Temp 98.4 F 06/12/21 09:10 Pulse 66 06/12/21 09:10 Resp 16 06/12/21 09:10 BP 119/81 06/12/21 09:10 Pulse Ox Intake & Output 06/11/21 06/12/21 06/12/21 18:59 06:59 18:59 Weight 61.235 kg - Constitutional General appearance: Present: cooperative - EENT Eyes: Present: EOMI ENT: Present: hearing grossly normal - Neck Neck: Present: normal ROM - Respiratory Respiratory: bilateral: CTA - Cardiovascular Rhythm: regular Heart sounds: normal: S1, S2 - Gastrointestinal General gastrointestinal: Present: soft - Integumentary Integumentary: Present: normal turgor - Musculoskeletal Musculoskeletal: Present: gait normal - Psychiatric Psychiatric: Present: A&O x's 3, appropriate affect, intact judgment & insight - Additional findings Additional findings: Breast Exam: BRA: 36C inspection: Bilateral grade 2 ptosis Palpation: Right breast: Multi-positional exam fibrocystic changes no dominant masses or nodules of concern Right axilla: No adenopathy of concern Left breast: Well-healed scar from prior surgery multiple positional exam no dominant masses or nodules of concern Left axilla: No adenopathy of concern Assessment and Plan Assessment: Impression: Bilateral fibrocystic breast changes Recent left breast mammogram benign BIRADS 2 [id number] We discussed chemoprevention however patient has declined at this time Plan: Repeat bilateral mammogram in September with physician exam at that time
== END ==
LOC: WWCWWP 09:04
PROVIDERS: ATTEND Surgery
DX: Z53.9 Procedure and treatment not carried out, unspecified reason (principal)

== ENCOUNTER → 2021-12-03 | Outpatient (CLI) | payer BC, OTHER ==
--- NOTE | 2021-12-09 14:42 | USB ---
Reason for Exam: Follow-up at short interval from prior study. Additional evaluation requested from prior study. Last mammogram was performed 1 year(s) and 3 month(s) ago. Patient History: Menarche at age 16. First Full-Term at age 38. Late child-bearing (after 30). Patient used Hormonal Contraceptives for 3 years. 11/26/2020, High risk Core Biopsy on the left side. 11/08/2020, Benign Core Biopsy on the left side. 11/01/2020, High risk Core Biopsy on the left side. 11/01/2020, High risk Core Biopsy on the left side. Risk Values: Mandy 5 year model risk: 2.6%. NCI Lifetime model risk: 18.6%. Prior Study Comparison: 09/24/2020 Left Diagnostic Mammogram, [facility]. 11/08/2020 Left Diagnostic Mammogram, [facility]. 06/03/2021 Left Diagnostic Mammogram, [facility]. Tissue Density: The breast tissue is heterogeneously dense. This may lower the sensitivity of mammography. Findings: Analyzed By CAD. Postsurgical changes are seen on the left with chronic appearing nodularity. Benign calcifications are noted. No suspicious grouped calcifications. Nodularity in the upper outer quadrant left breast similar to prior exam. Ultrasound is recommended for further evaluation. Technique: Method: Targeted. Multiple simple appearing cysts seen in LUOQ. Largest measured. Findings: The upper outer quadrant of the left breast, the axilla of the left breast and the retroareolar of the left breast were scanned. Finding 1: Simple cyst. Laterality: Left. Size 7 x 7 x 6 mm. 12 O'clock Quadrant: Upper outer. 5 cm cm from nipple. Shape: Round or Oval. Finding 2: Simple cyst. Laterality: Left. Size 17 x 19 x 9 mm. 2 O'clock Quadrant: Upper outer. 7 cm cm from nipple. Shape: Round or Oval. Ultrasonographic quadrant is performed. Benign cystic-appearing nodules correspond. Overall Assessment: Probably benign, BI-RAD 3 Assessment: MG diagnostic mammo w CAD SUKHWINDER - Bilateral: Incomplete: need additional imaging evaluation, BI-RAD 0. US breast limited LT - Left: Probably benign, BI-RAD 3. Management: Diagnostic Mammogram of the left breast in 6 months. A clinical breast exam by your physician is recommended on an annual basis and results should be correlated with mammographic findings. This exam should not preclude additional follow-up of suspicious palpable abnormalities. Results were given to the patient verbally at the time of exam. Electronically signed and approved by: Daniel Sawant M.D. Radiologis
== END | disposition home or self-care (01) ==
LOC: RADMAMWWP 14:18
PROVIDERS: ATTEND Surgery
DX: R92.8 Other abnormal and inconclusive findings on diagnostic imaging of breast (principal)
CPT/HCPCS: 77066

== ENCOUNTER → 2021-12-12 | Outpatient (CLI) | payer BC, OTHER ==
[2021-12-12 13:15] VITALS: BP 122/77; PULSE 65; RESP 17; TEMP 98.6
--- NOTE | 2021-12-12 13:29 | P.PN ---
Subjective Progress Note Date: 12/12/21 Principal diagnosis: atypical lobular hyperplasia Fibrocystic breast changes/atypical hyperplasia left breast Juana is a 46 year old white female seen initially regarding a radiographic abnormality in the left breast. She had a bilateral mammogram done on 09-06-20 which showed an area of concern in the left breast. Nothing of concern was seen in the right breast. A diagnostic left breast mammogram and ultrasound were done on 09-24-20. It was recommended she have stero biopsy of two sites in the left breast and ultrasound core biopsy of the left breast at 10:00. She did not feel anything of concern in the breast prior to this evaluation. She does not complain of any nipple discharge or skin changes. She has not had any breast surgery, trauma, or infection in her breast. ultrasound core biopsu on 11-08-20 was benign. Stero biopsy of two sites of the left breast on revealed in the posterior site fibrocystic changes, and in the anterior site atypical lobular hyperplasia. She subsequently underwent needle localization and excisional biopsy of the area of concern in the left breast. This was performed on . This revealed extensive atypical lobular hyperplasia, focal flat epithelial atypia. The patient had a mammogram of the left breast on [id number] this was benign BIRADS 2. She does not complain of any new lumps masses or nodules of concern in either breast. She is not complaining of any nipple discharge or skin changes. We discussed chemoprevention secondary to her history of atypical lobular hyperplasia however at this time she has declined in the past. She had a bilateral mammogram on 6121 no lesions of concern were identified in the right breast in the left breast recommendation was for a left breast ultrasound. The ultrasound was performed on the same date and the ultrasound revealed benign cystic appearing nodules. It was felt to be overall probably benign and recommendation was for a diagnostic mammogram of the left breast in 6 months. The patient had a risk evaluation which revealed a five-year risk of 2.6% a nd a lifetime risk of 18.6%. We have again discussed chemoprevention at this time she has declined. Caffeine: none nicotine: 6 cigarettes/day, since 18; has decreased to none on some days chocolate:occasional Family history: maternal grandfather: lung cancer smoker Hormonal History: menarche: 16 Miscarriages 4; breast fed: yes, first live at 37; patient had a recent miscarriage in June was about 7 weeks had a D&C periods periods regular BCP: 14 years, no other hormones Surgical history: 1. D&C 2. Lasix eye surgery 3. left breast biopsy Medical history: antifungal for toe nail chantix iron Social History: smoke: 6 cigarettes/day sone days none alcohol: none, used to be a heavy drinker drugs: Marijuana was weekly, now decreased - Constitutional Constitutional: Denies chills, Denies fever - EENT Eyes: denies blurred vision, denies pain Ears: right: tinnitus, deny: decreased hearing Ears, nose, mouth and throat: Denies headache, Denies sore throat - Breasts Breasts: bilateral: as per HPI - Cardiovascular Cardiovascular: Reports chest pain, Denies shortness of breath - Respiratory Respiratory: Denies cough - Gastrointestinal Gastrointestinal: Reports abdominal pain, Reports diarrhea, Denies nausea, Denies vomiting - Genitourinary (Female) Genitourinary: Denies dysuria, Denies hematuria - Menstruation Menstruation: Reports period normal - Musculoskeletal Musculoskeletal: Denies myalgias - Integumentary Integumentary: Denies pruritus, Denies rash - Neurological Neurological: Denies numbness, Denies weakness - Psychiatric Psychiatric: Denies anxiety, Denies depression - Endocrine Endocrine: Denies fatigue, Denies weight change - Hematologic/Lymphatic Comment: none - Allergic/Immunologic Allergic/Immunologic: Reports as per HPI Objective - Constitutional General appearance: Present: cooperative - EENT Eyes: Present: EOMI ENT: Present: hearing grossly normal - Neck Neck: Present: normal ROM - Respiratory Respiratory: bilateral: CTA - Cardiovascular Rhythm: regular Heart sounds: normal: S1, S2 - Integumentary Integumentary: Present: normal turgor - Musculoskeletal Musculoskeletal: Present: gait normal - Psychiatric Psychiatric: Present: A&O x's 3, intact judgment & insight - Additional findings Additional findings: Breast examination: BRA: 36B inspection: well healed scar left breast Patient: Right breast: Multi-positional exam fibrocystic changes no dominant masses or nodules of concern Left breast: Well-healed scar, tender to palpation, fibrocystic changes Left axilla: No adenopathy of concern Assessment and Plan Assessment: Impression: History of atypical lobular hyperplasia left breast Fibrocystic breast changes Plan: Left breast diagnositc mammogram in 6 months with appointment at that time At this time she is declined chemoprevention CC: Dr. Castro
== END | disposition home or self-care (01) ==
LOC: WWCWWP 12:37
PROVIDERS: ATTEND Surgery
DX: Z53.9 Procedure and treatment not carried out, unspecified reason (principal)

== ENCOUNTER → 2023-08-25 | Outpatient (CLI) | payer OTHER ==
--- NOTE | 2023-08-25 08:34 | MM ---
Reason for Exam: Additional evaluation requested from prior study. Last mammogram was performed 1 year(s) and 8 month(s) ago. Patient History: Menarche at age 16. First Full-Term at age 38. Late child-bearing (after 30). Patient has history of breast feeding. Patient used Hormonal Contraceptives for 3 years. 11/26/2020, High risk Core Biopsy on the left side. 11/08/2020, Benign Core Biopsy on the left side. 11/01/2020, High risk Core Biopsy on the left side. 11/01/2020, High risk Core Biopsy on the left side. Risk Values: Mandy 5 year model risk: 2.6%. NCI Lifetime model risk: 17.9%. Prior Study Comparison: 10/02/2004 Left Diagnostic Ultrasound, [facility]. 10/02/2004 Bilateral Diagnostic Mammogram, [facility]. 05/23/2019 Bilateral Screening Mammogram, [facility]. 06/20/2019 Bilateral Diagnostic Ultrasound, [facility]. 09/06/2020 Bilateral Screening Mammogram, [facility]. 09/24/2020 Left Diagnostic Mammogram, [facility]. 09/24/2020 Left Diagnostic Ultrasound, [facility]. 11/08/2020 Left Diagnostic Mammogram, [facility]. 06/03/2021 Left Diagnostic Mammogram, [facility]. 12/03/2021 Bilateral MG diagnostic mammo w CAD [facility], [facility]. 12/03/2021 Left US breast limited LT, [facility]. Tissue Density: The breast tissue is heterogeneously dense. This may lower the sensitivity of mammography. Findings: Analyzed By CAD. Excisional changes left breast. 2 microcoils left breast from prior biopsies. Bilateral areas of nodularity and asymmetric densities remain unchanged. No significant change from prior exams. Overall Assessment: Benign, BI-RAD 2 Management: Screening Mammogram of both breasts in 1 year. . Results were given to the patient verbally at the time of exam. Patient should continue monthly self-breast exams. A clinical breast exam by your physician is recommended on an annual basis. This exam should not preclude additional follow-up of suspicious palpable abnormalities. Note on Mandy scores and lifetime risk: 1. A Mandy score greater than 3% is considered moderate risk. If this is the case, consider specialist referral to assess eligibility for a risk reducing agent. 2. If overall lifetime risk for the development of breast cancer is 20% or higher, the patient may qualify for future screening with alternating mammogram and breast MRI. Electronically signed and approved by: Yuli Bucio M.D. Radiologist
== END | disposition home or self-care (01) ==
LOC: RADMAMWWP 07:55
PROVIDERS: ATTEND Internal Medicine
DX: R92.333 Mammographic heterogeneous density, bilateral breasts (principal)
CPT/HCPCS: 77066; G0279; 77062

== ENCOUNTER → 2024-10-19 | Outpatient (CLI) | payer OTHER ==
--- NOTE | 2024-10-19 08:42 | MM ---
Reason for Exam: Screening (asymptomatic). Last mammogram was performed 1 year(s) and 2 month(s) ago. Patient History: Menarche at age 16. First Full-Term at age 38. Late child-bearing (after 30). Patient has history of breast feeding. Patient used Hormonal Contraceptives for 3 years. 11/26/2020, High risk Core Biopsy on the left side. 11/08/2020, Benign Core Biopsy on the left side. 11/01/2020, High risk Core Biopsy on the left side. 11/01/2020, High risk Core Biopsy on the left side. Last menstrual period: 09/11/2024 Risk Values: Mandy 5 year model risk: 2.4%. NCI Lifetime model risk: 17.5%. Prior Study Comparison: 06/03/2021 Left Diagnostic Mammogram, [facility]. 12/03/2021 Bilateral MG diagnostic mammo w CAD [facility], [facility]. 08/25/2023 Bilateral MG 3D diag mammo w/cad [facility], [facility]. Tissue Density: The breasts are heterogeneously dense, which may obscure small masses. Findings: Analyzed By CAD. There is no suspicious group of microcalcifications or new suspicious mass in either breast. Chronic nodularity seen bilaterally. Postoperative changes noted on the left. Overall Assessment: Benign, BI-RAD 2 Management: Screening Mammogram of both breasts in 1 year. . Patient should continue monthly self-breast exams. A clinical breast exam by your physician is recommended on an annual basis. This exam should not preclude additional follow-up of suspicious palpable abnormalities. Note on Mandy scores and lifetime risk: 1. A Mandy score greater than 3% is considered moderate risk. If this is the case, consider specialist referral to assess eligibility for a risk reducing agent. 2. If overall lifetime risk for the development of breast cancer is 20% or higher, the patient may qualify for future screening with alternating mammogram and breast MRI. [facility], , 10/19/2024 8:39 AM. Electronically signed and approved by: Alex Casillas M.D. Radiologis
== END | disposition home or self-care (01) ==
LOC: RADMAMWWP 08:10
PROVIDERS: ATTEND Internal Medicine
DX: Z12.31 Encounter for screening mammogram for malignant neoplasm of breast (principal); R92.333 Mammographic heterogeneous density, bilateral breasts; Z92.0 Personal history of contraception
CPT/HCPCS: 77063; 77067